=== PATIENT | female | born 1965 | race Caucasian/White ===

== ENCOUNTER 2017-09-17 00:39 | Emergency (ER) | payer OTHER ==
[~2017-09-17] VITALS: Ht 157.5 cm; Wt 59.9 kg
[~2017-09-17 00:39] MED LIST: ASPIR 8181 MG PO; AUGMENTIN 875875 MG PO; CIPROFLOXACIN500 M1 PO; CLEOCIN HCL300 MG PO; FIORINAL CAPSUL1 CA1; FLEXERIL PO; FLOMAX PO; IBUPROFEN 200200 M1 PO; LOPRESSOR25 PO; NORCO 10-325 T1 EACH PO; NORCO 5-325 TA1 EACH PO; PERCOCET 5-3251 EACH PO; PHENERGAN 25 MG25 M1 PO; SAVELLA50 MG; TYLENOL325 MG PO; UNICOMPLEX M TA1 TA1 PO; VITAMIN B-1100 M1 PO; ZOFRAN ODT4 MG PO
[2017-09-17] MEDS ORDERED: HYDROCODONE-ACE15 ML PO (01:02)
[2017-09-17] MEDS ORDERED: LYRICA 75 MG CA75 MG PO (01:03)
[2017-09-17] MEDS ORDERED: BUTALB-ACETAMI1 EAC3 PO (01:03)
[2017-09-17] MEDS ORDERED: ACETAZOLAMIDE250 M1 PO (01:05)
[2017-09-17] MEDS ORDERED: IMITREX20 MG NASAL (01:06)
[2017-09-17] MEDS ORDERED: MOBIC7.5 M1 PO (01:06)
[2017-09-17] MEDS ORDERED: VITAMIN B-12500 MCG PO (01:07)
[2017-09-17] MEDS ORDERED: VITAMIN B-1100 M1 PO (01:07)
[2017-09-17] MEDS ORDERED: ASPIR 8181 MG PO (01:07)
[2017-09-17] MEDS ORDERED: BIOTIN1 M1 PO (01:07)
[2017-09-17] MEDS ORDERED: UNICOMPLEX M TA1 TA1 PO (01:08)
[2017-09-17 01:09] LABS: URINE BILIRUBIN NEGATIVE (Negative); URINE BLOOD 3+ (Negative); URINE CLARITY CLOUDY; URINE COLOR YELLOW; URINE GLUCOSE-RANDOM* NEGATIVE (Negative); URINE KETONES NEGATIVE (Negative); URINE LEUKOCYTES NEGATIVE (Negative); URINE NITRITE NEGATIVE (Negative); URINE PROTEIN (DIPSTICK) TRACE (Negative); URINE SPECIFIC GRAVITY 1.015 (1.005-1.035); URINE UROBILINOGEN 0.2 E.U./dl (0.2-1.0)
[2017-09-17 01:23] LABS: ABSOLUTE NEUTROPHILS 12.3 thou/uL (1.4-8.2); BASOPHILS 0.4 % (0.0-2.0); EOSINOPHILS 0.4 % (0.0-3.0); HEMATOCRIT 39.2 % (37.0-47.0); HEMOGLOBIN 13.3 gm/dL (12.0-15.0); LYMPHOCYTES 13.8 % (24.0-44.0); MCH 33.7 pg (26.0-34.0); MCHC 33.8 g/dL (28.0-37.0); MCV 99.7 fL (80.0-100.0); MONOCYTES 4.9 % (1.0-8.0); PLATELET COUNT 238 thou/uL (150-400); POLYS 80.5 % (36.0-66.0); RBC 3.93 mil/uL (4.20-5.00); RDW 14.6 % (10.5-14.5); WBC 15.3 thou/uL (4.0-11.0)
[2017-09-17 01:31] LABS: AMORPHOUS PHOSPHATES Moderate /LPF (None Seen); BACTERIA 1-9 Few /HPF (None Seen); CASTS None Seen /LPF (None Seen); CRYSTALS None Seen /LPF (None Seen); MUCUS None Seen strn/LPF (None Seen); SQUAMOUS None Seen /LPF (0-3); URINE RBC >20 Many /HPF (0-2); URINE WBC 6-15 Few /HPF (0-5)
[2017-09-17 01:32] LABS: CALCIUM 9.2 mg/dL (8.5-10.1); CREATININE 0.9 mg/dL (0.6-1.0)
[2017-09-17 01:33] LABS: POTASSIUM 2.9 mmol/L (3.5-5.1)
[2017-09-17] MEDS ORDERED: NORCO 5-325 TA1 EACH PO (03:34)
== END 2017-09-17 03:59 | disposition home or self-care (01) ==
LOC: ER 00:39
PROVIDERS: Emergency Medicine
DX: N13.2 Hydronephrosis with renal and ureteral calculous obstruction (principal); E87.6 Hypokalemia; D72.829 Elevated white blood cell count, unspecified; M79.7 Fibromyalgia; Z90.721 Acquired absence of ovaries, unilateral; F17.210 Nicotine dependence, cigarettes, uncomplicated; Z88.8 Allergy status to other drugs, medicaments and biological substances